=== PATIENT | female | born 1945 | race Caucasian/White ===

== ENCOUNTER 2017-12-28 20:49 | Emergency (ER) | payer MEDICARE ==
--- NOTE | 2017-12-28 21:07 | UC ---
Throat Pain/Nasal Bob HPI - HPI Summary HPI Summary: 72 yo female presents constant feeling the she needs to clear her throat and post nasal drip. She tells me that once a year she will get a sinus infection, but she did not this year. Instead, however, around August of this year - she developed drainage down the back of her throat that feels like it settles in the bottom of her throat and will cause her to cough. This has been ongoing since august. She has not tried anything over the counter. Denies fever, chills , sinus pain/pressure, SOB, chest pain, trouble swallowing. - History of Current Complaint Chief Complaint: UCRespiratory Stated Complaint: SINUS COMPLAINT Time Seen by Provider: 12/28/17 21:07 Hx Obtained From: Patient Onset/Duration: Gradual Onset Pain Intensity: 0 Pain Scale Used: 0-10 Numeric - Allergies/Home Medications Allergies/Adverse Reactions: Allergies Allergy/AdvReac Type Severity Reaction Status Date / Time Sulfa (Sulfonamide Allergy Intermediate Rash Verified 12/28/17 21:11 Antibiotics) PMH/Surg Hx/FS Hx/Imm Hx - Additional Past Medical History Additional PMH: None Previously Healthy: Yes - Family History Known Family History: Positive: Unknown - Social History Occupation: Retired Lives: With Family Alcohol Use: None Substance Use Type: None Smoking Status (MU): Never Smoked Tobacco Review of Systems Constitutional: Negative Skin: Negative Eyes: Negative ENT: Other - Post nasal drip Respiratory: Negative Cardiovascular: Negative Gastrointestinal: Negative Neurovascular: Negative Neurological: Negative Psychological: Negative All Other Systems Reviewed And Are Negative: Yes Physical Exam - Summary Physical Exam Summary: GENERAL: NAD. WDWN. No pain distress. SKIN: No rashes, sores, lesions, or open wounds. HEENT: Head: AT/NC Eyes: EOM intact. Conjunctiva clear without inflammation or discharge. Ears: Hearing grossly normal. TMs intact, no bulging, erythema, or edema. Nose: Nasal mucosa pink and moist. NTTP maxillary and frontal sinus. Throat: Posterior oropharynx without exudates, erythema, or tonsillar enlargement. Uvula midline. NECK: Supple. Nontender. No lymphadenopathy. CHEST: CTAB. No r/r/w. No accessory muscle use. Breathing comfortably and in no distress. CV: RRR. Without m/r/g. Pulses intact. Brisk cap refill. NEURO: Alert. CN II-XII grossly intact. PSYCH: Age appropriate behavior. Triage Information Reviewed: Yes Throat Pain/Nasal Course/Dx - Course Course Of Treatment: She is likely experiencing post nasal drip causing her to have a tickle in her throat and thus causing her cough. She thinks that she needs an antibiotic for this. I had a long discussion with the patient about the nature of post nasal drip and how over the counter treatments will likely benefit her more than an antibiotic. In the end, she was agreeable to try Claritin and Nasonex for 2 weeks and will hold on filling the amoxicillin unless her symptoms do not improve. - Differential Dx/Diagnosis Provider Diagnoses: Post nasal drip Discharge - Sign-Out/Discharge Documenting (check all that apply): Discharge/Admit/Transfer - Discharge Plan Condition: Stable Disposition: HOME Prescriptions: Amoxicillin PO (*) [Amoxicillin 500 MG CAP*] 500 mg PO Q12H #20 cap Loratadine [Claritin] 10 mg PO DAILY #30 tablet Mometasone Furoate [Nasonex] 1 spray NASAL DAILY #1 bottle Patient Education Materials: Sinusitis (ED), Postnasal Drip (DC) Referrals: Martita GOODMAN,aZna [Primary Care Provider] - Additional Instructions: If you develop a fever, shortness of breath, chest pain, new or worsening symptoms - please call your PCP or go to the ED. - Billing Disposition and Condition Condition: STABLE Disposition: HOME
[2017-12-28 21:11] VITALS: BP 133/70
== END 2017-12-28 21:38 | disposition home or self-care (01) ==
LOC: UCCORT 20:49
DX: R09.82 Postnasal drip (principal); Z88.2 Allergy status to sulfonamides
CPT/HCPCS: 99212; G0463

== ENCOUNTER 2018-11-03 10:15 | Emergency (ER) | payer MEDICARE ==
[2018-11-03 10:35] VITALS: BP 128/71
--- NOTE | 2018-11-03 11:29 | UC ---
Throat Pain/Nasal Bob HPI - HPI Summary HPI Summary: 73 yo female with sinus issues x > 1 month nasal congestion/post nasal drip now with right otalgia no fever - History of Current Complaint Chief Complaint: UCGeneralIllness Stated Complaint: SINUS COMPLAINT Hx Obtained From: Patient Onset/Duration: Gradual Onset, Lasting Weeks Severity: Moderate Pain Intensity: 5 Pain Scale Used: 0-10 Numeric Cough: Nonproductive Associated Signs & Symptoms: Positive: Sinus Discomfort, Nasal Discharge - Epiglottits Risk Factors Epiglottis Risk Factors: Negative - Allergies/Home Medications Allergies/Adverse Reactions: Allergies Allergy/AdvReac Type Severity Reaction Status Date / Time Sulfa (Sulfonamide Allergy Intermediate Rash Verified 12/28/17 21:11 Antibiotics) PMH/Surg Hx/FS Hx/Imm Hx Previously Healthy: Yes - Surgical History Surgical History: Yes Surgery Procedure, Year, and Place: age 41 - Family History Known Family History: Positive: Non-Contributory - Social History Alcohol Use: None Substance Use Type: None Smoking Status (MU): Never Smoked Tobacco Review of Systems All Other Systems Reviewed And Are Negative: Yes Constitutional: Positive: Negative Skin: Positive: Negative Eyes: Positive: Negative ENT: Positive: Ear Ache - R, Nasal Discharge, Sinus Congestion, Sinus Pain/ Tenderness Respiratory: Positive: Negative Cardiovascular: Positive: Negative Gastrointestinal: Positive: Negative Genitourinary: Positive: Negative Motor: Positive: Negative Neurovascular: Positive: Negative Musculoskeletal: Positive: Negative Neurological: Positive: Negative Psychological: Positive: Negative Physical Exam Triage Information Reviewed: Yes Appearance: Well-Appearing, No Pain Distress, Well-Nourished Vital Signs: Initial Vital Signs Temp 97.6 F 11/03/18 10:33 Pulse 82 11/03/18 10:33 Resp 17 11/03/18 10:33 BP 128/71 11/03/18 10:33 Pulse Ox 98 11/03/18 10:33 Vital Signs Reviewed: Yes Eyes: Positive: Conjunctiva Clear ENT: Positive: Normal ENT inspection, Nasal congestion, TM bulging - R, Sinus tenderness, Uvula midline. Negative: Nasal drainage, TM red, Tonsillar swelling , Tonsillar exudate, Hoarse voice, Dental tenderness Neck: Positive: Supple, Nontender, No Lymphadenopathy Respiratory: Positive: Lungs clear, Normal breath sounds, No respiratory distress, No accessory muscle use Cardiovascular: Positive: RRR, No Murmur Abdomen Description: Positive: Nontender Bowel Sounds: Positive: Present Musculoskeletal: Positive: ROM Intact, No Edema Neurological: Positive: Alert Psychological Exam: Normal Skin Exam: Normal Throat Pain/Nasal Course/Dx - Differential Dx/Diagnosis Provider Diagnosis: Sinusitis, acute, Right serous otitis media Discharge - Sign-Out/Discharge Documenting (check all that apply): Patient Departure All imaging exams completed and their final reports reviewed: No Studies - Discharge Plan Condition: Stable Disposition: HOME Prescriptions: Amoxicillin/Clavulanate TAB* [Augmentin TAB 875*] 875 mg PO BID #14 tab Patient Education Materials: Sinusitis (ED) Referrals: Martita GOODMAN,Zana [Primary Care Provider] - 5 Days (if not better) Additional Instructions: use your flonase 2 sprays twice daily for 2 weeks - Billing Disposition and Condition Condition: STABLE Disposition: Home
== END 2018-11-03 11:40 | disposition home or self-care (01) ==
LOC: UCCORT 10:15
DX: J32.9 Chronic sinusitis, unspecified (principal); H65.01 Acute serous otitis media, right ear; Z88.2 Allergy status to sulfonamides
CPT/HCPCS: 99212; G0463

== ENCOUNTER 2019-06-15 12:50 | Emergency (ER) | payer MEDICARE ==
[2019-06-15 13:18] VITALS: BP 144/79
--- NOTE | 2019-06-15 13:24 | UC ---
Throat Pain/Nasal Bob HPI - HPI Summary HPI Summary: Pt presents with c/o gradual worsening of nasal congestion,right ear pain, sinus pressure and pain X 10 days. - History of Current Complaint Stated Complaint: SINUS CONCERN Time Seen by Provider: 06/15/19 13:04 Hx Obtained From: Patient ?: No Onset/Duration: Gradual Onset, Lasting Days, Worse Since - onset Severity: Moderate Pain Intensity: 5 Cough: None Associated Signs & Symptoms: Positive: Sinus Discomfort, Nasal Discharge - Epiglottits Risk Factors Epiglottis Risk Factors: Negative - Allergies/Home Medications Allergies/Adverse Reactions: Allergies Allergy/AdvReac Type Severity Reaction Status Date / Time Sulfa (Sulfonamide Allergy Intermediate Rash Verified 06/15/19 13:18 Antibiotics) Home Medications: Home Medications LoraTADine TAB(NF) [Claritin 10 MG TAB(NF)] 10 mg PO DAILY 06/15/19 [History Confirmed 06/15/19] PMH/Surg Hx/FS Hx/Imm Hx Previously Healthy: Yes - Surgical History Surgical History: Yes Surgery Procedure, Year, and Place: age 41 - Family History Known Family History: Positive: Unknown, Non-Contributory - Social History Occupation: Retired Lives: With Family Alcohol Use: None Substance Use Type: None Smoking Status (MU): Never Smoked Tobacco Have You Smoked in the Last Year: No Review of Systems All Other Systems Reviewed And Are Negative: Yes Constitutional: Positive: Fatigue Skin: Positive: Negative Eyes: Positive: Negative ENT: Positive: Sinus Congestion, Sinus Pain/Tenderness Respiratory: Positive: Negative Cardiovascular: Positive: Negative Gastrointestinal: Positive: Negative Genitourinary: Positive: Negative Motor: Positive: Negative Neurovascular: Positive: Negative Musculoskeletal: Positive: Negative Neurological: Positive: Negative Psychological: Positive: Negative Is Patient Immunocompromised?: No Physical Exam Triage Information Reviewed: Yes Appearance: Ill-Appearing Vital Signs: Initial Vital Signs Temp 98.1 F 06/15/19 13:14 Pulse 66 06/15/19 13:14 Resp 16 06/15/19 13:14 BP 144/79 06/15/19 13:14 Pulse Ox 97 06/15/19 13:14 Vital Signs Reviewed: Yes Eye Exam: Normal ENT: Positive: Nasal congestion, Sinus tenderness Dental Exam: Normal Neck exam: Normal Respiratory Exam: Normal Cardiovascular Exam: Normal Musculoskeletal Exam: Normal Neurological Exam: Normal Psychological Exam: Normal Skin Exam: Normal Throat Pain/Nasal Course/Dx - Differential Dx/Diagnosis Differential Diagnosis/HQI/PQRI: Otitis Media, Sinusitis, URI Provider Diagnosis: Right ear pain, Sinusitis Discharge ED - Sign-Out/Discharge Documenting (check all that apply): Patient Departure All imaging exams completed and their final reports reviewed: No Studies - Discharge Plan Condition: Stable Disposition: HOME Prescriptions: Amoxicillin/Clavulanate TAB* [Augmentin TAB 875*] 875 mg PO Q12H #20 tab Patient Education Materials: Sinusitis (ED) Referrals: Zana Anders MD [Primary Care Provider] - If Needed - Billing Disposition and Condition Condition: STABLE Disposition: Home
== END 2019-06-15 13:37 | disposition home or self-care (01) ==
LOC: UCCORT 12:50
DX: J32.9 Chronic sinusitis, unspecified (principal); H92.01 Otalgia, right ear; Z88.2 Allergy status to sulfonamides
CPT/HCPCS: 99212; G0463